=== PATIENT | female | born 1970 | race Caucasian/White ===

== ENCOUNTER → 2017-07-08 | Day surgery (SDC) | payer OTHER ==
[~2017-07-08] MED LIST: LACTATED RINGER'S 1000 ML INJ 1,000 ML ONE; PROPOFOL 200 MG/20 ML AMP IV ONE
--- NOTE | 2017-07-08 12:18 | GIPROC ---
[facility] [address] [facility], [address] EGD PROCEDURE REPORT EXAM DATE: 07/08/2017 PATIENT NAME: Lauren Estrada MR #: [id number] BIRTHDATE: 1970 ATTENDING: Red Ortega MD ORDER #: [id number] [employer] WORKER: Lorie Domínguez STATUS: outpatient INDICATIONS: The patient is a 46 yr old female here for an EGD due to Preoperative assessment and history of esophageal reflux PROCEDURE PERFORMED: EGD w/ biopsy MEDICATIONS: None, Per Anesthesia, None, and Per Anesthesia. TOPICAL ANESTHETIC: CONSENT: The patient understands the risks and benefits of the procedure and understands that these risks include, but are not limited to: sedation, allergic reaction, infection, perforation and/or bleeding. Alternative means of evaluation and treatment include, among others: physical exam, x-rays, and/or surgical intervention. The patient elects to proceed with this endoscopic procedure. medical equipment was checked for proper function. Hand hygiene and appropriate measures for infection prevention was taken. After the risks, benefits and alternatives of the procedure were thoroughly explained, Informed consent was verified, confirmed and timeout was successfully executed by the treatment team. The patient was anesthetized with topical anesthesia and the EC-[id number] ([id number]) endoscope was introduced through the mouth and advanced to the second portion of the duodenum. Retroflexed views revealed no abnormalities The gastroscope was then slowly withdrawn and removed. STOMACH: There was mild gastritis in the gastric antrum. Multiple biopsies were performed. The endoscopy was otherwise normal. ADVERSE EVENTS: There were no complications. IMPRESSIONS: 1. There was mild gastritis in the gastric antrum; multiple biopsies were performed 2. Normal endoscopy otherwise 3. Retroflexed views revealed no abnormalities RECOMMENDATIONS: 1. Await biopsy results. Biopsy results will not be ready for 7-10 days. If you don't hear from us in two weeks, call our office for biopsy results. 2. Ok for bariatric surgery if antral biopsy is negative PATIENT CONDITION: stable DISPOSITION: Home REPEAT EXAM: Red Ortega MD eSigned: Red Ortega MD 07/08/2017 12:18 PM cc:
== END | disposition home or self-care (01) ==
LOC: ESDC 08:39
PROVIDERS: ATTEND Internal Medicine Gastroenterology
DX: K21.9 Gastro-esophageal reflux disease without esophagitis (principal); K29.70 Gastritis, unspecified, without bleeding
CPT/HCPCS: 00731; 43239; 88305; 88312; J3010; J7120

== ENCOUNTER 2017-08-28 05:28 | Inpatient (IN) | payer OTHER ==
[~2017-08-28] VITALS: Ht 160 cm; Wt 124.6 kg
[~2017-08-28 05:28] MED LIST changes: +CELE200C PO; +CLAR10CA3 PO; -LACTATED RINGER'S 1000 ML INJ 1,000 ML ONE; +LOSA100T PO; +PANT40TA3 PO; -PROPOFOL 200 MG/20 ML AMP IV ONE
[2017-08-28] MEDS ORDERED: ONDANSETRON HCL 4 MG/2 ML VIAL IV PUSH SCH (08:00)
[2017-08-28] MEDS ORDERED: ACETAMINOPHEN 1000 MG/100 ML 100 ML IV SCH (08:00)
[2017-08-28] MEDS ORDERED: METOPROLOL TARTRATE 25 MG TAB PO PRN (08:00)
[2017-08-28] MEDS ORDERED: POVIDONE IODINE 5% (ANTISEPSIS KIT) 4 APPLICATIONS EACH NARE PRN (08:00)
[2017-08-28] MEDS ORDERED: SCOPOLAMINE 1.5 MG PATCH T-DERMAL SCH (08:00)
[2017-08-28] MEDS ORDERED: CHLORHEXIDINE GLUCONATE 2 % 1 PACK (2 CLOTHS) TOPICAL PRN (08:00)
[2017-08-28] MEDS ORDERED: APREPITANT 40 MG CAP PO SCH (08:00)
[2017-08-28] MEDS ORDERED: SODIUM CHLORID 0.9% 500 ML IV PRN (08:00)
[2017-08-28] MEDS ORDERED: LACTATED RINGER'S 1000 ML IV PRN (08:00)
[2017-08-28] MEDS ORDERED: INSULIN HUMAN REGULAR 1,000 UNITS/10 ML VIAL SQ PRN (08:00)
[2017-08-28] MEDS ORDERED: BUPIVACAINE/EPINEPHRINE 0.25% 50 ML VIAL ONE (10:28)
[2017-08-28] MEDS ORDERED: ceFAZolin INJ 1,000 MG VIAL ONE (10:28)
[2017-08-28] MEDS ORDERED: metroNIDAZOLE 500 MG INJ 100 ML IV ONE (10:29)
[2017-08-28] MEDS ORDERED: HYDROCORTISONE SOD SUCCINATE 100 MG VIAL ONE (11:36)
[2017-08-28] MEDS ORDERED: DEXAMETHASONE SOD PHOS 4 MG/ML VIAL IV ONE (12:00)
[2017-08-28] MEDS ORDERED: ROCURONIUM INJ 50 MG/5 ML SYRINGE IV PUSH ONE (12:00)
[2017-08-28] MEDS ORDERED: ePHEDrine/NS 25 MG/5 ML SYRINGE IV ONE (12:00)
[2017-08-28] MEDS ORDERED: ONDANSETRON HCL 4 MG/2 ML VIAL IV ONE (12:00)
[2017-08-28] MEDS ORDERED: NEOSTIGMINE 5 MG/5 ML SYRINGE IV PUSH ONE (12:00)
[2017-08-28] MEDS ORDERED: LACTATED RINGER'S 1000 ML INJ 1,000 ML IV ONE (12:00)
[2017-08-28] MEDS ORDERED: GLYCOPYRROLATE 1 MG/5 ML SYRINGE IV PUSH ONE (12:00)
[2017-08-28] MEDS ORDERED: LIDOCAINE HCL 1% PF 5 ML SYRINGE OTHER ONE (12:00)
[2017-08-28] MEDS ORDERED: PROPOFOL 200 MG/20 ML AMP IV ONE (12:00)
[2017-08-28] MEDS ORDERED: MIDAZOLAM HCL 2 MG/2 ML VIAL ONE (12:36)
[2017-08-28] MEDS: METOCLOPRAMIDE HCL 10 MG/2 ML VIAL IV PUSH SCH ×3 (12:45→23:17)
[2017-08-28] MEDS ORDERED: DO NOT ADM ANY ANTICOAGULANT DRUGS PRN (13:00)
[2017-08-28] MEDS ORDERED: ACETAMINOPHEN 325MG/HYDROcodone 7.5MG/15ML UDC PO PRN (13:15)
[2017-08-28] MEDS ORDERED: SODIUM CHLORIDE 0.9% FLUSH 10 ML FLUSH IV FLUSH PRN (13:15)
[2017-08-28] MEDS ORDERED: NALOXONE HCL 0.4 MG/ML AMP IV PUSH PRN (13:15)
[2017-08-28] MEDS ORDERED: ENALAPRILAT 1.25 MG/ML VIAL IV PUSH PRN (13:15)
[2017-08-28] MEDS ORDERED: diphenhydrAMINE HCL ELIXIR 12.5 MG/5 ML CUP PO PRN (13:15)
[2017-08-28] MEDS ORDERED: diphenhydrAMINE HCL 50 MG/ML VIAL IV PUSH PRN (13:15)
[2017-08-28] MEDS ORDERED: HYDROmorphone HCL PCA 6 MG/30 ML IV SCH (13:15)
[2017-08-28] MEDS: D5-1/2 NS + KCL 20 MEQ INJ 1,000 ML IV SCH ×2 (13:15→23:17)
[2017-08-28] MEDS ORDERED: HYDROmorphone HCL PF 0.5 MG/0.5 ML SYRINGE ONE (13:34)
[2017-08-28] MEDS ORDERED: Post-op Orders (for Pharmacy) OTHER ONE (14:00)
[2017-08-28] MEDS: PCA - TOTAL MG DILAUDID DELIVERED PER SHIFT SCH ×2 (14:00→19:37)
[2017-08-28 16:00] VITALS: BP 126/58; PULSE 78; RESP 17; TEMP 97.5; O2SAT 92
[2017-08-28] MEDS: RESP: ALBUTEROL 2.5 MG/3 ML NEB (SCH) INH ×2 (16:00→19:44)
[2017-08-28] MEDS ORDERED: ENOXAPARIN SODIUM 40 MG/0.4 ML SYRINGE SQ SCH (17:00)
[2017-08-28] MEDS: ACETAMINOPHEN 1000 MG/100 ML 100 ML IV SCH ×2 (18:00→23:17)
[2017-08-28] MEDS: ONDANSETRON HCL 4 MG/2 ML VIAL IV PUSH PRN (19:36)
[2017-08-28 19:37] VITALS: RESP 18
[2017-08-28] MEDS: SODIUM CHLORIDE 0.9% FLUSH 10 ML FLUSH IV FLUSH SCH (19:38)
[2017-08-28 19:45] VITALS: O2SAT 93
[2017-08-28 20:00] VITALS: BP 144/68; PULSE 66; RESP 18; TEMP 97.7; O2SAT 94
[2017-08-29] VITALS (7 sets, daily range): BP systolic 99–138; BP diastolic 55–73; PULSE 56–78; RESP 17–18; TEMP 96.6–98.4; O2SAT 94–98
[2017-08-29] MEDS: RESP: ALBUTEROL 2.5 MG/3 ML NEB (SCH) INH ×5 (03:09→16:07)
[2017-08-29] MEDS: metroNIDAZOLE 500 MG INJ 100 ML IV SCH ×2 (04:14→11:03)
[2017-08-29] MEDS: METOCLOPRAMIDE HCL 10 MG/2 ML VIAL IV PUSH SCH (05:00)
[2017-08-29] MEDS: ACETAMINOPHEN 1000 MG/100 ML 100 ML IV SCH ×2 (05:00→11:09)
[2017-08-29] MEDS: D5-1/2 NS + KCL 20 MEQ INJ 1,000 ML IV SCH ×2 (05:15→11:10)
[2017-08-29] MEDS: PCA - TOTAL MG DILAUDID DELIVERED PER SHIFT SCH ×2 (06:00→14:00)
[2017-08-29 06:16] LABS: BICARBONATE 28.8 MEQ/L (21.0-32.0); CALCIUM 8.7 MG/DL (8.5-10.1); CREATININE 0.55 MG/DL (0.50-1.00); MAGNESIUM 2.1 MG/DL (1.5-2.5)
[2017-08-29] MEDS ORDERED: LOSARTAN 50 MG TAB PO SCH (09:00)
[2017-08-29] MEDS ORDERED: PANTOPRAZOLE SOD 40 MG DELAYED RELEASE TAB PO SCH (09:00)
[2017-08-29] MEDS: SODIUM CHLORIDE 0.9% FLUSH 10 ML FLUSH IV FLUSH SCH (09:00)
[2017-08-29] MEDS: ONDANSETRON HCL 4 MG/2 ML VIAL IV PUSH PRN (09:21)
[2017-08-29 10:07] LABS: AUTOMATED NEUTROPHIL # 11.9 TH/MM3 (1.8-7.7); BASOPHIL % 0.1 % (0.0-2.0); EOSINOPHIL % 0.1 % (0.0-4.0); HEMATOCRIT 41.2 % (35.0-46.0); HEMOGLOBIN 13.7 GM/DL (11.6-15.3); LYMPH % 12.3 % (9.0-44.0); LYMPHOCYTE # 1.8 TH/MM3 (1.0-4.8); MEAN CELL VOLUME 93.4 FL (80.0-100.0); MEAN CORPUSCULAR HEMOGLOBIN 31.1 PG (27.0-34.0); MEAN CORPUSCULAR HGB CONC 33.3 % (32.0-36.0); MEAN PLATELET VOLUME 8.1 FL (7.0-11.0); MONO % 6.2 % (0.0-8.0); MONOCYTE # 0.9 TH/MM3 (0-0.9); NEUT % 81.3 % (16.0-70.0); PLATELET COUNT 268 TH/MM3 (150-450); RED BLOOD COUNT 4.41 MIL/MM3 (4.00-5.30); RED CELL DISTRIBUTION WIDTH 13.3 % (11.6-17.2); WHITE BLOOD COUNT 14.6 TH/MM3 (4.0-11.0)
[2017-08-29] MEDS: ACETAMINOPHEN 325MG/HYDROcodone 7.5MG/15ML UDC PO PRN ×2 (11:02→15:31)
[2017-08-29] MEDS ORDERED: METOCLOPRAMIDE HCL 10 MG/2 ML VIAL IV PUSH PRN (13:15)
--- NOTE | 2017-08-29 16:14 | HHI.PR ---
Subjective Subjective Notes Doing well Pain well controlled Tolerating PO fluids Denies GI complaints Objective Vitals/I&O Vital Signs Date Time Temp Pulse Resp B/P (MAP) Pulse Ox O2 Delivery O2 Flow Rate FiO2 08/29/17 16:00 98.0 61 18 119/58 (78) 96 08/29/17 08:09 21 08/28/17 15:28 Nasal Cannula 2 Labs Laboratory Tests Test 08/29/17 04:45 08/29/17 09:25 Blood Urea Nitrogen 8 Creatinine 0.55 Random Glucose 142 Calcium Level 8.7 Magnesium Level 2.1 Sodium Level 142 Potassium Level 3.7 Chloride Level 107 Carbon Dioxide Level 28.8 Anion Gap 6 Estimat Glomerular Filtration Rate 119 White Blood Count 14.6 Red Blood Count 4.41 Hemoglobin 13.7 Hematocrit 41.2 Mean Corpuscular Volume 93.4 Mean Corpuscular Hemoglobin 31.1 Mean Corpuscular Hemoglobin Concent 33.3 Red Cell Distribution Width 13.3 Platelet Count 268 Mean Platelet Volume 8.1 Neutrophils (%) (Auto) 81.3 Lymphocytes (%) (Auto) 12.3 Monocytes (%) (Auto) 6.2 Eosinophils (%) (Auto) 0.1 Basophils (%) (Auto) 0.1 Neutrophils # (Auto) 11.9 Lymphocytes # (Auto) 1.8 Monocytes # (Auto) 0.9 Eosinophils # (Auto) 0.0 Basophils # (Auto) 0.0 CBC Comment DIFF FINAL Differential Comment Cardiovascular: Regular Lungs: Clear Abdomen: Post-op tenderness Extremities: Perfused Wound Wound : Wound Location: Abdomen Appearance: Clean & Dry A/P Assessment and Plan 46yo F POD#1 laparoscopic RNY -D/C [employer] PSYCHIATRIST, transition to oral pain control -Restart home BP meds -Continue with frequent ambulation -Continue to increase fluids as tolerated, don't go over 60ml Q30min for now Discharge Planning D/C home today Danilo Rosario Aug 29, 2017 16:14
--- NOTE | 2017-09-03 19:06 | MP ---
cc: Sohail Ortega MD DATE OF OPERATION: 08/28/2017 DATE OF PROCEDURE: 08/28/2017 PREOPERATIVE DIAGNOSES: Morbid obesity with a body mass index of 48, complicated by essential hypertension. POSTOPERATIVE DIAGNOSES: Morbid obesity with a body mass index of 48, complicated by essential hypertension. PROCEDURE PERFORMED: Laparoscopic Kaity-en-Y gastric bypass, 100 cm Kaity limb antegastric antecolic. SURGEON: Sohail Ortega MD VICE PRESIDENT [employer] INSIGHTS: Cedric Peterson MD ANESTHESIA: General endotracheal anesthesia. ESTIMATED BLOOD LOSS: Scant. FINDINGS: Fatty liver. SPECIMENS: None. COMPLICATIONS: None. DESCRIPTION OF PROCEDURE: The patient was given prophylactic antibiotic in pre-op holding. She was taken to the operating room and placed on the operating table in supine position. Bilateral sequential inflation devices were placed on the lower extremities. General anesthesia was instituted. A Hernandez catheter was placed. The abdomen was prepped and draped in a sterile fashion. The supraumbilical region was anesthetized with 0.5% Marcaine with epinephrine approximately three fingerbreadths above the umbilicus. A skin incision was made to the left of the umbilicus. A 12 mm Optiview port was placed under direct vision. A pneumoperitoneum was created. Under direct vision one 5 mm right upper quadrant port, one 12 mm right upper quadrant port, as well as one 12 mm left upper quadrant and two 5 mm left upper quadrant ports were placed. Prior to placement of all ports the skin and peritoneum was anesthetized with 0.5% Marcaine with epinephrine. The patient was placed in reverse Trendelenburg position. A Laure-Flex retractor was placed and the liver was retracted. The gastroesophageal junction was identified. The angle of His was taken down. The lesser sac was entered on the lesser curvature approximately 5 cm distal to the gastroesophageal junction. The stomach was divided in this region with an Endo JOSEY 3.5 mm load. A gastric pouch was created angled towards the angle of His using an additional three firings of the Endo JOSEY 3.5 mm load. A 30-40 mL pouch was created. The staple line of the gastric remnant was covered with omentum. Attention was then focused on the gastrocolic ligament, and this was opened widely using the Harmonic scalpel. The transverse mesocolon was identified and was opened using the Harmonic scalpel creating a Y-defect. The ligament of Treitz was identified and brought into view. A point 50 cm distal to the ligament of Treitz was identified and the small bowel was transected in this region. The distal segment was run for a distance of 100 cm. At this point using the biliopancreatic limb an enterostomy was created with an Endo JOSEY vascular load. This defect was closed with 2-0 Vicryl running in two layers. The proximal staple line was then brought up into the upper abdomen. An enterotomy was created. A gastrotomy was created. A gastrojejunostomy was created with an Endo JOSEY 3.5 mm load creating a stoma of approximately 2 cm. This defect was closed in two layers using 2-0 Vicryl. Prior to placement of the second wave the anastomosis was tested with methylene blue. There was leakage of methylene blue along the suture lines; this was reinforced with a second wave of running 2-0 Vicryl with no further leak. Tisseel was then placed over the anastomosis. A 10 mm flat Payam-Pollock drain was then placed posterior to the gastrojejunal anastomosis as well as the jejunostomy. The upper abdomen was irrigated with saline. The liver retractor was then removed. The pneumoperitoneum was released. All ports were removed. The CORBIN was secured to the abdominal wall using 2-0 silk. All skin incisions were closed with 4-0 PDS. The abdomen was cleaned. A sterile dressing was placed. The patient was awakened and taken to the recovery room stable. MD BENJIE Mason/RENE , 06:46 PM , 07:06 PM
== END 2017-08-29 18:17 | disposition home or self-care (01) | DRG 621 ==
LOC: HSDI 05:28 → N07B 15:35
PROVIDERS: ADMIT Surgery; ATTEND Surgery
PROC: 0D164ZA Bypass Stomach to Jejunum, Percutaneous Endoscopic Approach (ICD-10-PCS; principal; 2017-08-28 10:30)
DX: E66.01 Morbid (severe) obesity due to excess calories (principal); K76.0 Fatty (change of) liver, not elsewhere classified; I10 Essential (primary) hypertension; Z68.42 Body mass index [BMI] 45.0-49.9, adult
CPT/HCPCS: 80048; 83735; 85025; 94150; 94640; 94664; J0131; J0690; J1100; J1170; J1650; J1720; J2250; J2405; J2710; J2765; J3010; J3480; J7120; J7613; J8501